=== PATIENT | female | born 1995 | race African-American/Black ===

== ENCOUNTER 2016-06-19 17:46 | Emergency (ER) | payer SELFPAY ==
[2016-06-19] MEDS ORDERED: NO HOME MEDICATION XX (18:09)
[2016-06-19] MEDS ORDERED: NORCO 5-325 TA1 EACH PO (19:04)
[2016-06-19] MEDS ORDERED: ACYCLOVIR200 M1 PO (19:04)
[2016-06-19 19:29] LABS: URINE BILIRUBIN NEGATIVE (NEG); URINE BLOOD LARGE (NEG); URINE GLUCOSE (UA) NEGATIVE (NEG); URINE KETONE NEGATIVE (NEG); URINE LEUKOCYTE ESTERASE POSITIVE (NEG); URINE NITRITE POSITIVE (NEG); URINE PROTEIN MODERATE (NEG); URINE SPECIFIC GRAVITY 1.015 (1.003-1.030)
[2016-06-19 19:30] LABS: URINE APPEARANCE CLOUDY; URINE COLOR YELLOW
[2016-06-19 19:34] LABS: URINE AMORPHOUS 2+; URINE BACTERIA 3+; URINE EPITHELIAL CELLS FULL FIELD /[HPF] (0-10); URINE MUCUS 1+; URINE WBC FULL FIELD /[HPF] (0-5)
== END 2016-06-19 19:40 ==
LOC: EDMED 17:46
PROVIDERS: Emergency Medicine
DX: R10.2 Pelvic and perineal pain (principal); R30.0 Dysuria